=== PATIENT | female | born 1975 | race Caucasian/White ===

== ENCOUNTER 2020-12-25 06:22 | Emergency (ER) | payer BC, OTHER ==
[~2020-12-25] VITALS: Ht 154.9 cm; Wt 76.6 kg
[2020-12-25 06:30] VITALS: BP 119/78
--- NOTE | 2020-12-25 06:44 | NUR ---
INITIAL PT CONTACT. PT PRESENTS TO ED C/O LLQ PAIN X 2 DAYS. INCREASED SINCE LAST NIGHT. DENIES N/V/D. DENIES ANY DYSURIA OR HEMATURIA. PT SITTING UPRIGHT ON GURNEY, NADN, VSS. CALL LIGHT AND PERSONAL BELONGINGS WITHIN REACH. AWAITING ERP.
[2020-12-25] MEDS ORDERED: KETOROLAC 30 MG/1 ML ONE (06:51)
[2020-12-25] MEDS ORDERED: KETOROLAC 30 MG/1 ML IM ONE (07:00)
--- NOTE | 2020-12-25 07:00 | NUR ---
BEDSIDE REPORT GIVEN TO SARA RUIZ
[2020-12-25 07:07] LABS: BASOPHILS % (AUTO) 1 % (0-1); EOSINOPHILS % (AUTO) 1 % (1-7); LYMPHOCYTES % (AUTO) 28 % (22-44); MEAN CORPUSCULAR HEMOGLOBIN 31.1 pg (27.0-34.8); MEAN CORPUSCULAR HGB CONC 33.4 g/dL (32.4-35.8); MEAN PLATELET VOLUME 7.9 fL (7.4-10.4); MONOCYTES % (AUTO) 11 % (2-9); NEUTROPHILS % (AUTO) 59 % (42-75); PLATELET COUNT 324 x10^3/uL (130-400); RED BLOOD COUNT 4.15 x10^6/uL (3.82-5.3); RED CELL DISTRIBUTION WIDTH 13.3 % (9.6-15.2)
[2020-12-25 07:18] LABS: ALANINE AMINOTRANSFERASE 26 U/L (12-78); ALBUMIN 3.3 g/dL (3.4-5.0); ANION GAP 6 mmol/L (5-15); CALCIUM 8.6 mg/dL (8.5-10.1); CHLORIDE 106 mmol/L (98-107); CREATININE 0.75 mg/dL (0.55-1.02)
[2020-12-25 07:21] LABS: ALKALINE PHOSPHATASE 70 U/L (45-117); BILIRUBIN,TOTAL 0.3 mg/dL (0.2-1.0); TOTAL PROTEIN 7.5 g/dL (6.4-8.2)
[2020-12-25 08:27] LABS: MICROSCOPIC INDICATED
--- NOTE | 2020-12-25 09:28 | NUR ---
assumed care for discharge only Patient/Caregiver given discharge instructions and they have confirmed that they understand the instructions. Patient ambulatory with steady gait. NAD, all questions answered appropriately, denies additional needs at this time. No personal belongings left in room after discharge.
== END 2020-12-25 09:37 | disposition home or self-care (01) ==
LOC: ED 09:31
DX: R10.32 Left lower quadrant pain (principal); K59.00 Constipation, unspecified
CPT/HCPCS: 36415; 74021; 76830; 80053; 81001; 83690; 84703; 85025; 87086; 96372; 99285; J1885